=== PATIENT | male | born 1960 | race Caucasian/White ===

== ENCOUNTER → 2020-06-27 | Emergency (ER) | payer BC ==
[~2020-06-27] VITALS: Ht 185.4 cm; Wt 100.7 kg
[~2020-06-27] MED LIST: ALTEPLASE 81 MG IV ONE; ALTEPLASE 9 MG IV ONE; CONTRAST GIVEN. MC PRN; IOHEXOL 300 MG/ML 100ML VIAL. IV ONE; IV DEXTROSE 5% - 0.9 % NACL 1,000 ML IV ONE; IV NORMAL SALINE 50ML 50 ML IV ONE; LABETALOL 20 MG/4 ML DISP.SYRIN. IVP ONE; LABETALOL 20 MG/4 ML DISP.SYRIN. IVP PRN; THIAMINE INJ 100 MG in IV DEXTROSE 5% 50 ML IV ONE
--- NOTE | 2020-06-27 05:48 | RAD ---
CT scan of the head without contrast 06/27/2020 Clinical History: Left-sided weakness. Facial drooping. Technique: Unenhanced, contiguous, 5 mm axial sections were obtained through the head. One or more of the following individualized dose reduction techniques were utilized for this study: 1. Automated exposure control. 2. Adjustment of the mA and/or kV according to patient size. 3. Use of iterative reconstruction technique. Findings: There is generalized parenchymal atrophy. No acute parenchymal abnormality is seen. No ext ra-axial fluid collection is noted. No skull fracture is seen. Moderate mucosal thickening is seen in volving the right maxillary sinus. Impression: No acute intracranial abnormality is seen. This result was called to the emergency department. Electronically signed by: Dileep Mortensen MD (06/27/2020 5:45 AM) [id number]
[2020-06-27 05:52] LABS: BASO # 0.1 x10^3/uL (0.0-0.2); BASO % 1 % (0-3); EOS # 0.2 x10^3/uL (0.0-0.7); EOS % 3 % (0-3); HEMATOCRIT 41.8 % (39.0-53.0); HEMOGLOBIN 14.5 g/dL (13.0-17.5); LYMPH # 2.5 x10^3/uL (1.0-4.8); LYMPH % 35 % (24-48); MEAN CORPUSCULAR HEMOGLOBIN 33 pg (25-35); MEAN CORPUSCULAR HGB CONC 35 g/dL (31-37); MEAN CORPUSCULAR VOLUME 96 fL (79-100); MONO # 0.7 x10^3/uL (0.0-1.1); MONO % 9 % (0-9); NEUT # 3.9 x10^3/uL (1.8-7.7); NEUT % 53 % (31-73); PLATELET COUNT 235 x10^3/uL (140-400); RED BLOOD COUNT 4.37 x10^6/uL (4.30-5.70); RED CELL DISTRIBUTION WIDTH 12.3 % (11.5-14.5); WHITE BLOOD COUNT 7.3 x10^3/uL (4.0-11.0)
[2020-06-27 05:58] LABS: CALCIUM 9.3 mg/dL (8.5-10.1); CREATININE 1.2 mg/dL (0.7-1.3); GFR 62.4; POTASSIUM 4.9 mmol/L (3.5-5.1)
[2020-06-27 06:00] LABS: PROTHROMBIN TIME PATIENT 12.6 SEC (11.7-14.0)
[2020-06-27 06:37] VITALS: BP 173/97
--- NOTE | 2020-06-27 07:33 | EKG ---
[facility] [address] [place] [address] Test Date: 2020-06-27 Test Time: 05:34:26 Pat Name: SAIDA CEBALLOS Department: Room: Gender: M [employer]: : 1960 Requested By: ESTRELLA REYNOLDS Order Number: [id number] Reading MD: Measurements Intervals [place] Rate: 92 P: 20 HI: 132 QRS: 25 QRSD: 84 T: 58 QT: 356 QTc: 445 Interpretive Statements SINUS RHYTHM NORMAL ECG RI6.02 No previous ECG available for comparison
--- NOTE | 2020-06-27 07:51 | RAD ---
STUDY: CT angiography of the head and neck INDICATION: Cerebrovascular accident. The patient is status post TPA. COMPARISON: CT head without contrast 06/27/2020 at 0530 hours TECHNIQUE: Axial CT imaging of the head and neck utilizing angiography protocol and performed after t he intravenous administration of 75 cc contrast. Multiplanar reformats and 3D MIP acquisitions were o btained. Encountered areas of stenosis are measured per NASCET criteria. One or more of the following individualized dose reduction techniques were utilized for this examinat ion: 1. Automated exposure control 2. Adjustment of the mA and/or kV according to patient size 3. Use of iterative reconstruction technique. FINDINGS: CTA NECK: Arch/Proximal Great Vessels: No dissection or aneurysm at the aortic arch. Patent great vessel origin s. Patent subclavian arteries. Noncalcified atheromatous plaque involving the more distal aspect of b oth common carotid arteries without a hemodynamically significant stenosis. Carotid Bifurcation/Cervical ICA: Calcified and noncalcified atheromatous plaque at the carotid bulb and proximal ICA on both the right and left. Proximal ICA stenosis on the left of approximately 45 pe rcent. Approximate 35 percent carotid bulb stenosis on the right. Vertebral Arteries: The extracranial left vertebral artery is dominant. No flow-limiting stenosis or dissection throughout the neck. CTA HEAD: Posterior Circulation: Continue dominance of the left vertebral artery. Both vertebral arteries contr ibute to basilar flow. The basilar artery is patent. No proximal occlusion or flow-limiting stenosis of the right and left posterior cerebral arteries. Anterior Circulation: Right more so than left carotid siphon calcific atherosclerosis without a flow- limiting stenosis. Despite TPA administration, persistent proximal M2 branch occlusion on the right s een at the entrance to the sylvian fissure on image 984 series 4. Regained contrast opacification aft er a length of around 1.6 cm, image 989 series 4. No flow-limiting stenosis or branch vessel occlusio n of the left middle cerebral artery or either anterior cerebral artery. Veins: Patent dural sinuses. MISCELLANEOUS: Cervical spine degenerative changes greatest from C4-C5 through C6-C7 but a central extrusion is also seen at C3-C4. Multilevel central canal stenosis favored greatest at C5-C6. Varying extent of osseou s neural foraminal stenosis ranging from mild to severe. Bilateral maxillary sinus retention cysts. IMPRESSION: CT Angio Neck: 1. Right and left carotid calcified and noncalcified atheromatous plaque with approximately 35% sten osis at the right carotid bulb and 45% stenosis at the proximal left ICA. 2. No flow-limiting stenosis or dissection of the extracranial vertebral arteries. 3. Advanced multifactorial degenerative changes of the cervical spine with at least moderate central canal stenosis at a few levels, particularly C5-C6, and osseous neural foraminal stenosis ranging fr om mild to severe. Nonemergent/outpatient MRI would better characterize if there are symptoms referra ble to the cervical spine. CT Angio Head: 1. Proximal M2 branch occlusion on the right with regained opacification after a length of around 1.6 cm. No flow-limiting stenosis or branch vessel occlusion seen elsewhere throughout the anterior or p osterior cerebral circulation. FOR INTERNAL CODING PURPOSES Critical result: Findings discussed with Dr. Gunn on 06/27/2020 at 0735 hours. RESULT CODE: (C) Electronically signed by: ANH GIVENS MD (06/27/2020 7:49 AM) [id number]
--- NOTE | 2020-06-27 18:58 | PHYS DOC ---
Past Medical History Past Medical History: Diabetes-Type II, Hypertension Past Surgical History: Tonsillectomy Smoking Status: Current Some Day Smoker Alcohol Use: Heavy Additional Information: approx 4 doubles per day Adult General Chief Complaint Chief Complaint: NEURO SYMPTOMS/DEFICITS [facility] HPI Patient is a 59 year old with a past medical history including hypertension, hyperlipidemia, diabetes and alcohol dependence now presenting to the emergency department with new onset of left-sided weakness. Patient states he thinks he woke up about 3:00 and started feeling a little funny. Woke up with his at around 3-3 30 when she noted that he was suddenly having weakness in his left arm. Patient presents with apparent complete left-sided facial numbness and weakness. Patient primary complaint was difficulty speaking. Patient notes that he was drinking last night and had 2 beers last night around 10 PM. Denies any recent fever, chills, nausea, vomiting, dizziness or lightheadedness. Review of Systems Review of Systems Constitutional: Denies fever or chills [] Eyes: Denies change in visual acuity, redness, or eye pain [] HENT: Denies nasal congestion or sore throat [] Respiratory: Denies cough or shortness of breath [] Cardiovascular: No additional information not addressed in HPI [] GI: Denies abdominal pain, nausea, vomiting, bloody stools or diarrhea [] : Denies dysuria or hematuria [] Musculoskeletal: Denies back pain or joint pain [] Integument: Denies rash or skin lesions [] Neurologic: Denies headache, focal weakness or sensory changes [] Endocrine: Denies polyuria or polydipsia [] All other systems were reviewed and found to be within normal limits, except as documented in this note. Current Medications Current Medications Current Medications Medications (Trade) Dose Ordered Sig/Tavo Start Time Stop Time Status Last Admin Dose Admin Alteplase, Recombinant 81 ml @ 81 mls/hr 1X ONCE 06/27/20 06:00 06/27/20 06:59 DC 06/27/20 06:07 81 MLS/HR Dextrose/Sodium Chloride 1,000 ml @ 75 mls/hr 1X ONCE 06/27/20 06:00 06/27/20 19:19 Info (CONTRAST GIVEN -- Rx MONITORING) 1 each PRN DAILY PRN 06/27/20 10:00 06/29/20 09:59 Iohexol (Omnipaque 300 Mg/ml) 75 ml 1X ONCE 06/27/20 10:00 06/27/20 10:01 DC 06/27/20 10:01 75 ML Labetalol HCl (Normodyne Iv Push) 10 mg PRN Q10MIN PRN 06/27/20 06:00 Nicardipine HCl 50 mg/Sodium Chloride 250 ml @ 25 mls/hr CONT PRN PRN 06/27/20 06:00 Sodium Chloride 50 ml @ 50 mls/hr 1X ONCE 06/27/20 07:30 06/27/20 08:29 DC Thiamine HCl 100 mg/Dextrose 51 ml @ 102 mls/hr 1X ONCE 06/27/20 07:30 06/27/20 07:59 DC Allergies Allergies Allergies Coded Allergies Type Severity Reaction Last Updated Verified No Known Drug Allergies 06/27/20 No Physical Exam Physical Exam Constitutional: Well developed, well nourished, no acute distress, non-toxic appearance. [] HENT: Normocephalic, atraumatic, bilateral external ears normal, oropharynx moist, no oral exudates, nose normal. [] Eyes: PERRLA, EOMI, conjunctiva normal, no discharge. [] Neck: Normal range of motion, no tenderness, supple, no stridor. [] Cardiovascular:Heart rate regular rhythm, no murmur [] Lungs & Thorax: Bilateral breath sounds clear to auscultation [] Abdomen: Bowel sounds normal, soft, no tenderness, no masses, no pulsatile masses. [] Skin: Warm, dry, no erythema, no rash. [] Back: No tenderness, no CVA tenderness. [] Extremities: No tenderness, no cyanosis, no clubbing, ROM intact, no edema. [] Neurologic: Alert and oriented X 3, complete left hemineglect with left upper extremity palsy and left hemianopsia [] Psychologic: Affect normal, judgement normal, mood normal. [] Current Patient Data Vital Signs Vital Signs Date Time Temp Pulse Resp B/P (MAP) Pulse Ox O2 Delivery O2 Flow Rate FiO2 06/27/20 06:37 90 14 173/97 (122) 98 Room Air 06/27/20 05:30 97.4 97.4 Lab Values Laboratory Tests Test 06/27/20 05:30 06/27/20 05:33 Glucose (Fingerstick) 290 mg/dL (70-99) H White Blood Count 7.3 x10^3/uL (4.0-11.0) Red Blood Count 4.37 x10^6/uL (4.30-5.70) Hemoglobin 14.5 g/dL (13.0-17.5) Hematocrit 41.8 % (39.0-53.0) Mean Corpuscular Volume 96 fL (79-100) Mean Corpuscular Hemoglobin 33 pg (25-35) Mean Corpuscular Hemoglobin Concent 35 g/dL (31-37) Red Cell Distribution Width 12.3 % (11.5-14.5) Platelet Count 235 x10^3/uL (140-400) Neutrophils (%) (Auto) 53 % (31-73) Lymphocytes (%) (Auto) 35 % (24-48) Monocytes (%) (Auto) 9 % (0-9) Eosinophils (%) (Auto) 3 % (0-3) Basophils (%) (Auto) 1 % (0-3) Neutrophils # (Auto) 3.9 x10^3/uL (1.8-7.7) Lymphocytes # (Auto) 2.5 x10^3/uL (1.0-4.8) Monocytes # (Auto) 0.7 x10^3/uL (0.0-1.1) Eosinophils # (Auto) 0.2 x10^3/uL (0.0-0.7) Basophils # (Auto) 0.1 x10^3/uL (0.0-0.2) Prothrombin Time 12.6 SEC (11.7-14.0) Prothrombin Time INR 1.0 (0.8-1.1) Activated Partial Thromboplast Time 26 SEC (24-38) Sodium Level 135 mmol/L (136-145) L Potassium Level 4.9 mmol/L (3.5-5.1) Chloride Level 98 mmol/L (98-107) Carbon Dioxide Level 30 mmol/L (21-32) Anion Gap 7 (6-14) Blood Urea Nitrogen 12 mg/dL (8-26) Creatinine 1.2 mg/dL (0.7-1.3) Estimated GFR (Cockcroft-Gault) 62.4 Glucose Level 259 mg/dL (70-99) H Calcium Level 9.3 mg/dL (8.5-10.1) Troponin I Quantitative < 0.017 ng/mL (0.000-0.055) Laboratory Tests 06/27/20 05:33 Laboratory Tests 06/27/20 05:33 EKG EKG [] Radiology/Procedures Radiology/Procedures [] Course & Med Decision Making Course & Med Decision Making Pertinent Labs and Imaging studies reviewed. (See chart for details) 59M presenting to the emergency department with acute on of severe left-sided deficits noted to have significant left hemiparesis, left hemianopsia, left hemineglect and rightward gaze palsy concerning for large vessel occlusive stroke. Upon identification of this a CT of the head was obtained without any demonstration of intracranial hemorrhage. NIH 17 on arrival. He is the patient's history of alcohol abuse we initiated thiamine and dextrose but also immediately started patient on alteplase. Full blood work was also sent. The patient was ultimately signed out to Dr. Gunn with plan to obtain CTA of the head to evaluate for large vessel occlusion. Dragon Disclaimer Dragon Disclaimer This electronic medical record was generated, in whole or in part, using a voice recognition dictation system. Departure Departure Impression: Primary Impression: CVA (cerebral vascular accident) Referrals: NO PCP (PCP) ESTRELLA REYNOLDS MD Jun 27, 2020 18:58
== END ==
LOC: ER 05:22
DX: I63.9 Cerebral infarction, unspecified (principal); R53.1 Weakness; H53.462 Homonymous bilateral field defects, left side; E11.9 Type 2 diabetes mellitus without complications; F10.10 Alcohol abuse, uncomplicated; I10 Essential (primary) hypertension; Z90.89 Acquired absence of other organs; Z87.891 Personal history of nicotine dependence
CPT/HCPCS: 36415; 70450; 70496; 70498; 80048; 82962; 84484; 85025; 85610; 85730; 93005; 96365; 96375; 99285; J2997; J3490; Q9967